=== PATIENT | female | born 1940 | race African-American/Black ===

== ENCOUNTER 2018-03-22 13:20 | Emergency (ER) | payer OTHER ==
[~2018-03-22] VITALS: Ht 167.6 cm; Wt 88.0 kg
[~2018-03-22 13:20] MED LIST: ASPI-986 PO; ATOR40TA70 MT; COR25 MT; DOCU-150 PO; HYDR-4135 PO; LEVO25TA7 PO; LISI40TA4 PO
[2018-03-22] MEDS ORDERED: SODIUM CHLORIDE 0.9% 1,000 ML IV ONE (14:07)
[2018-03-22] MEDS ORDERED: ONDANSETRON HCL 4MG/2ML INJ IV STA (14:07)
[2018-03-22 15:01] LABS: BASOPHILS % 1.1 % (0.0-2.0); EOSINOPHILS % 5.5 % (0.0-5.0); HEMOGLOBIN. 12.2 g/dL (12.0-16.0); LYMPHOCYTES % 30.7 % (20.0-50.0); MEAN CORPUSCULAR HEMOGLOBIN 26.6 pg (28.0-32.0); MEAN CORPUSCULAR VOLUME 80.9 fL (81.0-99.0); MEAN PLATELET VOLUME 8.1 fl (7.4-10.4); MONOCYTES % 10.9 % (2.0-8.0); NEUTROPHILS % 51.8 % (40.0-76.0); PLATELET 311 x1000/uL (130-400); RED BLOOD CELL COUNT 4.57 mill/uL (4.2-5.4); RED CELL DISTRIBUTION WIDTH 15.1 % (11.6-14.6)
[2018-03-22] MEDS ORDERED: HYDR-4134 PO (15:01)
[2018-03-22 15:08] LABS: CHLORIDE 108 mEq/L (98-107)
[2018-03-22] MEDS ORDERED: ASPIRIN 81MG TABLET PO ONE (16:30)
[2018-03-22] MEDS ORDERED: NA PHOS,M-B/NA PHOS,DI-BA ENEMA 118ML PR PRN (18:30)
[2018-03-22] MEDS ORDERED: MAGNESIUM/ALUMINUM HYDROXIDE/SIMETHICONE 30ML UDC PO PRN (18:30)
[2018-03-22] MEDS ORDERED: DEXT 5%/0.45% NACL 1000ML 1,000 ML IV SCH (18:30)
[2018-03-22] MEDS ORDERED: ONDANSETRON HCL 4MG/2ML INJ IV PRN (18:30)
[2018-03-22] MEDS ORDERED: DIPHENHYDRAMINE 50MG/ML VIAL IV PRN (18:30)
[2018-03-22] MEDS ORDERED: HYDRALAZINE 20MG/ML VIAL IV PRN (18:30)
[2018-03-22] MEDS ORDERED: IPRATROPIUM/ALBUTEROL 0.5-3(2.5)MG/3ML NEB INH PRN (18:30)
[2018-03-22] MEDS ORDERED: GUAIFENESIN 200MG/10ML SUGAR FREE UDC PO PRN (18:30)
[2018-03-22] MEDS ORDERED: DEXTROSE 50% WATER 50ML SYRINGE IV PRN (19:15)
[2018-03-22 19:21] LABS: CLARITY URINE CLEAR (CLEAR); COLOR URINE YELLOW (YELLOW); KETONES URINE NEGATIVE (NEGATIVE); LEUKOCYTE ESTERASE URINE 3+ (NEGATIVE); NITRITE URINE NEGATIVE (NEGATIVE); OCCULT BLOOD URINE NEGATIVE (NEGATIVE); PROTEIN URINE NEGATIVE (NEGATIVE); SPECIFIC GRAVITY URINE 1.008 (1.005-1.030); UROBILINOGEN URINE 0.2 E.U./dL (0.2-1.0)
[2018-03-22 19:28] LABS: INR 1.1; PROTHROMBIN TIME 10.8 sec (9.1-11.1)
[2018-03-22 19:40] LABS: *AMPHETAMINES SCREEN URINE NEGATIVE (NEGATIVE); *BARBITURATES SCREEN URINE NEGATIVE (NEGATIVE); *BENZODIAZEPINES SCREEN URINE NEGATIVE (NEGATIVE); *COCAINE SCREEN URINE NEGATIVE (NEGATIVE); CANNABINOID URINE SCREEN NEGATIVE (NEGATIVE); METHADONE URINE SCREEN NEGATIVE (NEGATIVE); OPIATES URINE SCREEN NEGATIVE (NEGATIVE); PHENCYCLIDINE URINE SCREEN NEGATIVE (NEGATIVE)
[2018-03-22 19:55] VITALS: BP 169/74
[2018-03-22] MEDS ORDERED: BLOOD SUGAR DIAGNOSTIC STRIP TEST SCH (21:00)
[2018-03-22] MEDS ORDERED: INSULIN LISPRO 100 UNITS/ML SUBCUT SCH (21:00)
[2018-03-22] MEDS ORDERED: HYDRALAZINE HCL 50MG TABLET PO SCH (22:00)
[2018-03-23] MEDS ORDERED: LEVOTHYROXINE SODIUM 25MCG TABLET PO SCH (07:50)
[2018-03-23] MEDS ORDERED: ATORVASTATIN CALCIUM 40MG TABLET PO SCH (09:00)
[2018-03-23] MEDS ORDERED: ASPIRIN 81MG TABLET PO SCH (09:00)
[2018-03-23] MEDS ORDERED: CARVEDILOL 25MG TABLET PO SCH (09:00)
== END 2018-03-22 20:13 | disposition home or self-care (01) ==
LOC: ER 14:44 → EDBEDREQTM 16:15 → EDBEDREQ 16:15 → ER 20:13 → ENRESERV 20:17 → CANRESERV 20:17 → CANBEDREQ 03-23 00:10
DX: E11.9 Type 2 diabetes mellitus without complications (principal); I10 Essential (primary) hypertension; Z86.73 Personal history of transient ischemic attack (TIA), and cerebral infarction without residual deficits; Z88.0 Allergy status to penicillin; Z79.899 Other long term (current) drug therapy; Z88.6 Allergy status to analgesic agent
CPT/HCPCS: 36415; 71045; 74018; 80053; 80305; 81003; 83690; 84484; 85025; 85610; 87086; 93005; 93970; 96361; 96374; 99285; J1200; J2405; J7030

== ENCOUNTER 2018-07-25 17:56 | Inpatient (IN) | payer BC, MEDICARE, OTHER ==
[~2018-07-25] VITALS: Ht 162.6 cm; Wt 94.3 kg
[~2018-07-25 17:56] MED LIST changes: -ATOR40TA70 MT; +ATOR40TA70 PO; -COR25 MT; +COR25 PO; +HYDR-4134 PO
[2018-07-25] MEDS ORDERED: ONDANSETRON HCL 4MG/2ML INJ IV STA (18:52)
[2018-07-25] MEDS ORDERED: SODIUM CHLORIDE 0.9% 1,000 ML IV ONE (18:52)
[2018-07-25] MEDS ORDERED: CLONIDINE 0.2MG TABLET PO ONE (19:00)
[2018-07-25 19:39] LABS: CHLORIDE 104 mEq/L (98-107)
[2018-07-25 19:40] LABS: BASOPHILS % 1.1 % (0.0-2.0); EOSINOPHILS % 0.8 % (0.0-5.0); HEMATOCRIT. 42.1 % (36.0-48.0); HEMOGLOBIN. 13.4 g/dL (12.0-16.0); LYMPHOCYTES % 27.1 % (20.0-50.0); MEAN CORPUSCULAR HEMOGLOBIN 26.3 pg (28.0-32.0); MEAN CORPUSCULAR VOLUME 82.4 fL (81.0-99.0); MEAN PLATELET VOLUME 8.4 fl (7.4-10.4); MONOCYTES % 9.8 % (2.0-8.0); NEUTROPHILS % 61.2 % (40.0-76.0); PLATELET 349 x1000/uL (130-400); RED BLOOD CELL COUNT 5.11 mill/uL (4.2-5.4); RED CELL DISTRIBUTION WIDTH 15.6 % (11.6-14.6)
[2018-07-25 19:47] LABS: D-DIMER 2.68 mg/L FEU (<0.50); PARTIAL THROMBOPLASTIN TIME 23.1 sec (23.4-31.0); PROTHROMBIN TIME 10.4 sec (9.1-11.1)
[2018-07-25] MEDS ORDERED: ASPIRIN 325MG EC TABLET PO ONE (20:00)
[2018-07-25] MEDS ORDERED: IOHEXOL-350 100 ML BOTTLE ONE (22:42)
[2018-07-25] MEDS ORDERED: SODIUM CHLORIDE 0.9% 1000ML BAG (SEPSIS BOLUS) IV ONE (23:00)
[2018-07-25] MEDS ORDERED: LEVOFLOXACIN 750MG PREMIX 150 ML IV ONE (23:00)
[2018-07-25 23:57] LABS: CLARITY URINE CLOUDY (CLEAR); COLOR URINE YELLOW (YELLOW); KETONES URINE NEGATIVE (NEGATIVE); LEUKOCYTE ESTERASE URINE 3+ (NEGATIVE); NITRITE URINE NEGATIVE (NEGATIVE); OCCULT BLOOD URINE NEGATIVE (NEGATIVE); PH URINE 7.5 (4.5-8.0); PROTEIN URINE NEGATIVE (NEGATIVE); SPECIFIC GRAVITY URINE 1.013 (1.005-1.030); UROBILINOGEN URINE 0.2 E.U./dL (0.2-1.0)
[2018-07-26] VITALS (7 sets, daily range): BP systolic 129–158; BP diastolic 55–81
[2018-07-26] MEDS ORDERED: TRAMADOL 50MG TABLET PO PRN (02:30)
[2018-07-26] MEDS ORDERED: LOSA1TAB34 PO (02:47)
[2018-07-26] MEDS ORDERED: HYDRALAZINE HCL 25MG TABLET PO SCH (06:00)
[2018-07-26] MEDS ORDERED: LEVOTHYROXINE SODIUM 25MCG TABLET PO SCH (07:40)
[2018-07-26] MEDS ORDERED: ASPIRIN 325MG TABLET PO SCH (09:00)
[2018-07-26] MEDS ORDERED: LEVOTHYROXINE SODIUM 25 MCG PO SCH (09:00)
[2018-07-26] MEDS ORDERED: LOSARTAN POTASSIUM 50 MG TABLET PO SCH (09:00)
[2018-07-26] MEDS ORDERED: DOCUSATE SODIUM 100MG CAPSULE PO SCH (09:00)
[2018-07-26] MEDS ORDERED: HYDRALAZINE HCL 75 MG PO SCH (09:00)
[2018-07-26] MEDS ORDERED: ENOXAPARIN 40MG/0.4ML SYR SUBCUT SCH (09:00)
[2018-07-26] MEDS ORDERED: HYDROCHLOROTHIAZIDE 12.5MG CAPSULE PO SCH (09:00)
[2018-07-26] MEDS ORDERED: CARVEDILOL 25MG TABLET PO SCH (09:00)
[2018-07-26] MEDS ORDERED: MEDICATION NOT ON FORMULARY EA (Aspirin 325 MG) PO SCH (09:00)
[2018-07-26] MEDS ORDERED: MEDICATION NOT ON FORMULARY EA (Losartan/Hydrochlorothiazide (Losartan-Hctz 50-12.5 Mg T PO SCH (09:00)
[2018-07-26] MEDS ORDERED: MEDICATION NOT ON FORMULARY EA (Docusate Sodium 100 MG) PO SCH (09:00)
[2018-07-26 10:59] LABS: BASOPHILS % 0.9 % (0.0-2.0); EOSINOPHILS % 1.5 % (0.0-5.0); HEMATOCRIT. 39.2 % (36.0-48.0); HEMOGLOBIN. 12.6 g/dL (12.0-16.0); LYMPHOCYTES % 21.5 % (20.0-50.0); MEAN CORPUSCULAR HEMOGLOBIN 26.3 pg (28.0-32.0); MEAN PLATELET VOLUME 8.2 fl (7.4-10.4); MONOCYTES % 7.2 % (2.0-8.0); NEUTROPHILS % 68.9 % (40.0-76.0); PLATELET 313 x1000/uL (130-400); RED BLOOD CELL COUNT 4.78 mill/uL (4.2-5.4)
[2018-07-26 11:10] LABS: CHLORIDE 105 mEq/L (98-107)
[2018-07-26 11:45] LABS: CREATINE KINASE 40 IU/L (26-192)
[2018-07-26 11:52] LABS: CREATINE KINASE MB FRACTION 1.4 ng/mL (0.5-3.6)
[2018-07-26] MEDS ORDERED: DEXTROSE 50% WATER 50ML SYRINGE IV PRN ×2 (13:00→15:45)
[2018-07-26] MEDS ORDERED: INSULIN LISPRO 100 UNITS/ML SUBCUT SCH ×2 (13:10→18:10)
[2018-07-26] MEDS ORDERED: HYDRALAZINE HCL 100MG TABLET PO SCH (14:00)
[2018-07-26] MEDS ORDERED: LEVOFLOXACIN 500MG TABLET PO SCH (16:30)
[2018-07-26] MEDS ORDERED: CARVEDILOL 12.5MG TABLET PO SCH (17:00)
[2018-07-26] MEDS ORDERED: BLOOD SUGAR DIAGNOSTIC STRIP TEST SCH ×2 (17:40)
[2018-07-26] MEDS ORDERED: ATORVASTATIN CALCIUM 40MG TABLET PO SCH (21:00)
== END 2018-07-26 21:25 | disposition home or self-care (01) | DRG 74 ==
LOC: ER 17:56 → 7WST 21:49 → EDBEDREQ 21:56 → EDBEDREQTM 21:56 → ENRESERV 23:35
PROVIDERS: ADMIT Internal Medicine; ATTEND Internal Medicine
DX: G90.8 Other disorders of autonomic nervous system (principal); N39.0 Urinary tract infection, site not specified; E03.9 Hypothyroidism, unspecified; E11.65 Type 2 diabetes mellitus with hyperglycemia; E78.00 Pure hypercholesterolemia, unspecified; E78.5 Hyperlipidemia, unspecified; I10 Essential (primary) hypertension; Z86.73 Personal history of transient ischemic attack (TIA), and cerebral infarction without residual deficits; Z88.0 Allergy status to penicillin; Z88.8 Allergy status to other drugs, medicaments and biological substances; Z79.82 Long term (current) use of aspirin; Z79.899 Other long term (current) drug therapy
CPT/HCPCS: 36415; 71045; 71275; 80048; 82550; 82553; 82962; 83036; 83605; 83880; 84484; 85379; 93005; 93880; 93970; 96365; 96375; 97162; 99285; A6261; J1650; J1956; J2405; J7030; Q9967

== ENCOUNTER 2018-10-09 21:31 | Inpatient (IN) | payer BC ==
[~2018-10-09] VITALS: Ht 162.6 cm; Wt 94.0 kg
[~2018-10-09 21:31] MED LIST changes: -HYDR-4134 PO; -LISI40TA4 PO; +LOSA1TAB34 PO
[2018-10-09] MEDS ORDERED: IOHEXOL-350 100 ML BOTTLE ONE (22:17)
[2018-10-09] MEDS ORDERED: CEFTRIAXONE 1 G PREMIX 50 ML IV ONE (23:15)
[2018-10-09] MEDS ORDERED: SODIUM CHLORIDE 0.9% 1000ML BAG (SEPSIS BOLUS) IV ONE (23:15)
[2018-10-09] MEDS ORDERED: ASPIRIN 81MG TABLET PO ONE (23:30)
[2018-10-09 23:35] LABS: CHLORIDE 102 mEq/L (98-107)
[2018-10-09 23:37] LABS: BASOPHILS % 1.2 % (0.0-2.0); EOSINOPHILS % 1.2 % (0.0-5.0); HEMATOCRIT. 38.5 % (36.0-48.0); HEMOGLOBIN. 12.6 g/dL (12.0-16.0); LYMPHOCYTES % 40.1 % (20.0-50.0); MEAN CORPUSCULAR HEMOGLOBIN 28.2 pg (28.0-32.0); MEAN CORPUSCULAR VOLUME 86.2 fL (81.0-99.0); MEAN PLATELET VOLUME 6.9 fl (7.4-10.4); MONOCYTES % 10.5 % (2.0-8.0); PLATELET 407 x1000/uL (130-400); RED BLOOD CELL COUNT 4.47 mill/uL (4.2-5.4); RED CELL DISTRIBUTION WIDTH 15.5 % (11.6-14.6)
[2018-10-09 23:40] LABS: ETHANOL BLOOD < 10 mg/dL
[2018-10-09 23:42] LABS: LDL CHOLESTEROL 48 mg/dL (5-100)
[2018-10-09] MEDS: HYDRALAZINE 20MG/ML VIAL IV ONE (23:48)
[2018-10-10] VITALS (10 sets, daily range): BP systolic 130–171; BP diastolic 74–135
[2018-10-10 00:13] LABS: CLARITY URINE CLEAR (CLEAR); COLOR URINE YELLOW (YELLOW); KETONES URINE NEGATIVE (NEGATIVE); LEUKOCYTE ESTERASE URINE 2+ (NEGATIVE); NITRITE URINE NEGATIVE (NEGATIVE); OCCULT BLOOD URINE NEGATIVE (NEGATIVE); PROTEIN URINE NEGATIVE (NEGATIVE); SPECIFIC GRAVITY URINE 1.015 (1.005-1.030); UROBILINOGEN URINE 0.2 E.U./dL (0.2-1.0)
[2018-10-10 00:23] LABS: *AMPHETAMINES SCREEN URINE NEGATIVE (NEGATIVE); *BARBITURATES SCREEN URINE NEGATIVE (NEGATIVE); *BENZODIAZEPINES SCREEN URINE NEGATIVE (NEGATIVE); *COCAINE SCREEN URINE NEGATIVE (NEGATIVE)
[2018-10-10 00:24] LABS: CANNABINOID URINE SCREEN PRESUMTIVE POSITIVE (NEGATIVE); METHADONE URINE SCREEN NEGATIVE (NEGATIVE); OPIATES URINE SCREEN NEGATIVE (NEGATIVE); PHENCYCLIDINE URINE SCREEN NEGATIVE (NEGATIVE)
[2018-10-10] MEDS: HYDRALAZINE 20MG/ML VIAL IV ONE (00:34)
[2018-10-10] MEDS ORDERED: METOPROLOL TARTRATE 5MG/5ML VIAL IV SCH (07:15)
[2018-10-10] MEDS: HYDRALAZINE 20MG/ML VIAL IV PRN (08:13)
[2018-10-10] MEDS ORDERED: ENOXAPARIN 40MG/0.4ML SYR SUBCUT SCH (09:00)
[2018-10-10] MEDS: DEXT 5%/0.45% NACL 1000ML 1,000 ML IV SCH (10:34)
[2018-10-10] MEDS: NITROGLYCERIN OINT 1GM/INCH UDPKT TD SCH ×4 (10:35→20:01)
[2018-10-10] MEDS: CLOPIDOGREL 75MG TABLET PO SCH (10:35)
[2018-10-10] MEDS: LEVOTHYROXINE SODIUM 25MCG TABLET PO SCH (10:35)
[2018-10-10] MEDS: ENOXAPARIN 30MG/0.3ML SYR SUBCUT SCH ×2 (10:36→20:06)
[2018-10-10] MEDS: LOSARTAN POTASSIUM 50 MG TABLET PO SCH (12:50)
[2018-10-10] MEDS: DOCUSATE SODIUM 100MG CAPSULE PO SCH (12:50)
[2018-10-10] MEDS: HYDROCHLOROTHIAZIDE 12.5MG CAPSULE PO SCH (12:50)
[2018-10-10] MEDS: LEVOFLOXACIN 500MG PREMIX 100 ML IV SCH (18:14)
[2018-10-10] MEDS: ATORVASTATIN CALCIUM 40MG TABLET PO SCH (20:01)
[2018-10-10] MEDS: CARVEDILOL 25MG TABLET PO SCH (20:02)
[2018-10-10 20:35] LABS: T4 FREE 1.19 ng/dL (0.76-1.46)
[2018-10-10 20:50] LABS: FOLIC ACID (FOLATE) SERUM 12.4 ng/mL (>5.38)
[2018-10-11] VITALS (21 sets, daily range): BP systolic 94–184; BP diastolic 56–101
[2018-10-11] MEDS: NITROGLYCERIN OINT 1GM/INCH UDPKT TD SCH ×7 (00:30→23:30)
[2018-10-11] MEDS: HYDRALAZINE 20MG/ML VIAL IV PRN ×3 (03:01→12:39)
[2018-10-11] MEDS: DEXT 5%/0.45% NACL 1000ML 1,000 ML IV SCH (04:00)
[2018-10-11] MEDS: ENOXAPARIN 30MG/0.3ML SYR SUBCUT SCH ×2 (08:39→23:29)
[2018-10-11] MEDS: LEVOTHYROXINE SODIUM 25MCG TABLET PO SCH (08:39)
[2018-10-11] MEDS: ASPIRIN 325MG EC TABLET PO SCH (08:39)
[2018-10-11] MEDS: CARVEDILOL 25MG TABLET PO SCH ×2 (08:40→23:29)
[2018-10-11] MEDS: DOCUSATE SODIUM 100MG CAPSULE PO SCH (08:41)
[2018-10-11] MEDS: LOSARTAN POTASSIUM 50 MG TABLET PO SCH (08:49)
[2018-10-11] MEDS: CLOPIDOGREL 75MG TABLET PO SCH (09:19)
[2018-10-11] MEDS: HYDROCHLOROTHIAZIDE 12.5MG CAPSULE PO SCH (09:19)
[2018-10-11] MEDS ORDERED: LABETALOL 5MG/ML SYR 20 MG/4 ML SYRINGE IV NR (10:00)
[2018-10-11 11:12] LABS: EOSINOPHILS % 2.2 % (0.0-5.0); HEMATOCRIT. 36.9 % (36.0-48.0); LYMPHOCYTES % 31.4 % (20.0-50.0); MEAN CORPUSCULAR HEMOGLOBIN 27.8 pg (28.0-32.0); MEAN CORPUSCULAR VOLUME 85.3 fL (81.0-99.0); MONOCYTES % 12.8 % (2.0-8.0); NEUTROPHILS % 51.6 % (40.0-76.0); PLATELET 438 x1000/uL (130-400); RED BLOOD CELL COUNT 4.32 mill/uL (4.2-5.4); RED CELL DISTRIBUTION WIDTH 15.3 % (11.6-14.6)
[2018-10-11 11:17] LABS: CHLORIDE 107 mEq/L (98-107)
[2018-10-11] MEDS ORDERED: LABETALOL 5MG/ML SYR 20 MG/4 ML SYRINGE IV PRN (15:45)
[2018-10-11] MEDS: LEVOFLOXACIN 500MG PREMIX 100 ML IV SCH (17:04)
[2018-10-11] MEDS ORDERED: LORAZEPAM 2MG/ML CPJ IV NR (22:15)
[2018-10-11] MEDS: ATORVASTATIN CALCIUM 40MG TABLET PO SCH (23:28)
[2018-10-11] MEDS: LEVETIRACETAM 500 MG in SODIUM CHLORIDE 0.9% 100 ML IV SCH (23:28)
[2018-10-11] MEDS ORDERED: LORAZEPAM 2MG/ML CPJ IV PRN (23:45)
[2018-10-12] VITALS (14 sets, daily range): BP systolic 96–132; BP diastolic 52–72
[2018-10-12] MEDS: DEXT 5%/0.45% NACL 1000ML 1,000 ML IV SCH ×2 (00:03→12:42)
[2018-10-12] MEDS: NITROGLYCERIN OINT 1GM/INCH UDPKT TD SCH ×5 (03:34→21:33)
[2018-10-12] MEDS: LEVOTHYROXINE SODIUM 25MCG TABLET PO SCH ×2 (06:26→09:05)
[2018-10-12 06:31] LABS: HEMATOCRIT. 35.6 % (36.0-48.0); HEMOGLOBIN. 11.2 g/dL (12.0-16.0); MEAN CORPUSCULAR HEMOGLOBIN 27.6 pg (28.0-32.0); MEAN CORPUSCULAR VOLUME 87.5 fL (81.0-99.0); MEAN PLATELET VOLUME 7.2 fl (7.4-10.4); PLATELET 335 x1000/uL (130-400); RED BLOOD CELL COUNT 4.07 mill/uL (4.2-5.4); RED CELL DISTRIBUTION WIDTH 15.3 % (11.6-14.6)
[2018-10-12 06:42] LABS: CHLORIDE 109 mEq/L (98-107)
[2018-10-12 06:53] LABS: PHOSPHORUS 3.8 mg/dL (2.5-4.9)
[2018-10-12] MEDS: ENOXAPARIN 30MG/0.3ML SYR SUBCUT SCH ×2 (09:02→21:33)
[2018-10-12] MEDS: LEVETIRACETAM 500 MG in SODIUM CHLORIDE 0.9% 100 ML IV SCH ×2 (09:03→21:44)
[2018-10-12] MEDS: CLOPIDOGREL 75MG TABLET PO SCH (09:04)
[2018-10-12] MEDS: DOCUSATE SODIUM 100MG CAPSULE PO SCH (09:04)
[2018-10-12] MEDS: LOSARTAN POTASSIUM 50 MG TABLET PO SCH (09:04)
[2018-10-12] MEDS: CARVEDILOL 25MG TABLET PO SCH ×2 (09:05→21:32)
[2018-10-12] MEDS: HYDROCHLOROTHIAZIDE 12.5MG CAPSULE PO SCH (09:05)
[2018-10-12] MEDS: ASPIRIN 325MG EC TABLET PO SCH (09:05)
[2018-10-12 14:04] LABS: PLATELET ESTIMATE NORMAL
[2018-10-12] MEDS: LEVOFLOXACIN 500MG PREMIX 100 ML IV SCH (17:58)
[2018-10-12] MEDS: ATORVASTATIN CALCIUM 40MG TABLET PO SCH (21:33)
[2018-10-13] VITALS (11 sets, daily range): BP systolic 98–131; BP diastolic 49–76
[2018-10-13] MEDS: NITROGLYCERIN OINT 1GM/INCH UDPKT TD SCH ×6 (00:41→21:17)
[2018-10-13] MEDS: DEXT 5%/0.45% NACL 1000ML 1,000 ML IV SCH ×2 (02:38→05:00)
[2018-10-13] MEDS: ENOXAPARIN 30MG/0.3ML SYR SUBCUT SCH ×2 (08:48→21:34)
[2018-10-13] MEDS: LOSARTAN POTASSIUM 50 MG TABLET PO SCH (08:49)
[2018-10-13] MEDS: DOCUSATE SODIUM 100MG CAPSULE PO SCH (08:49)
[2018-10-13] MEDS: ASPIRIN 325MG EC TABLET PO SCH (08:49)
[2018-10-13] MEDS: LEVETIRACETAM 500 MG in SODIUM CHLORIDE 0.9% 100 ML IV SCH ×2 (08:50→21:17)
[2018-10-13] MEDS: CLOPIDOGREL 75MG TABLET PO SCH (08:51)
[2018-10-13] MEDS: CARVEDILOL 25MG TABLET PO SCH ×2 (09:24→21:18)
[2018-10-13] MEDS: HYDROCHLOROTHIAZIDE 12.5MG CAPSULE PO SCH (09:25)
[2018-10-13] MEDS: LEVOFLOXACIN 500MG PREMIX 100 ML IV SCH (17:27)
[2018-10-13] MEDS: ATORVASTATIN CALCIUM 40MG TABLET PO SCH (21:18)
[2018-10-14] VITALS (12 sets, daily range): BP systolic 111–163; BP diastolic 52–83
[2018-10-14] MEDS: NITROGLYCERIN OINT 1GM/INCH UDPKT TD SCH ×7 (00:17→23:20)
[2018-10-14] MEDS: DEXT 5%/0.45% NACL 1000ML 1,000 ML IV SCH ×2 (00:22→19:43)
[2018-10-14] MEDS: LEVOTHYROXINE SODIUM 25MCG TABLET PO SCH (06:24)
[2018-10-14] MEDS: ENOXAPARIN 30MG/0.3ML SYR SUBCUT SCH ×2 (08:41→20:14)
[2018-10-14] MEDS: LOSARTAN POTASSIUM 50 MG TABLET PO SCH (08:42)
[2018-10-14] MEDS: DOCUSATE SODIUM 100MG CAPSULE PO SCH (08:43)
[2018-10-14] MEDS: ASPIRIN 325MG EC TABLET PO SCH (08:43)
[2018-10-14] MEDS: CARVEDILOL 25MG TABLET PO SCH ×2 (08:43→20:14)
[2018-10-14] MEDS: HYDROCHLOROTHIAZIDE 12.5MG CAPSULE PO SCH (10:05)
[2018-10-14] MEDS: LEVETIRACETAM 500 MG in SODIUM CHLORIDE 0.9% 100 ML IV SCH (10:06)
[2018-10-14] MEDS: CLOPIDOGREL 75MG TABLET PO SCH (10:06)
[2018-10-14] MEDS: LEVOFLOXACIN 500MG TABLET PO SCH (17:38)
[2018-10-14] MEDS: ATORVASTATIN CALCIUM 40MG TABLET PO SCH (20:14)
[2018-10-14] MEDS: LEVETIRACETAM 500MG TABLET PO SCH (20:14)
[2018-10-15] VITALS (10 sets, daily range): BP systolic 103–143; BP diastolic 47–90
[2018-10-15] MEDS: NITROGLYCERIN OINT 1GM/INCH UDPKT TD SCH ×6 (04:44→23:04)
[2018-10-15] MEDS: HYDROCHLOROTHIAZIDE 12.5MG CAPSULE PO SCH (08:41)
[2018-10-15] MEDS: CARVEDILOL 25MG TABLET PO SCH ×2 (08:42→20:59)
[2018-10-15] MEDS: LEVETIRACETAM 500MG TABLET PO SCH ×2 (08:42→20:59)
[2018-10-15] MEDS: DOCUSATE SODIUM 100MG CAPSULE PO SCH (08:42)
[2018-10-15] MEDS: ASPIRIN 325MG EC TABLET PO SCH (08:43)
[2018-10-15] MEDS: LOSARTAN POTASSIUM 50 MG TABLET PO SCH (08:43)
[2018-10-15] MEDS: CLOPIDOGREL 75MG TABLET PO SCH (08:43)
[2018-10-15] MEDS: ENOXAPARIN 30MG/0.3ML SYR SUBCUT SCH ×2 (08:43→21:00)
[2018-10-15] MEDS: LEVOTHYROXINE SODIUM 25MCG TABLET PO SCH (08:44)
[2018-10-15] MEDS: DEXT 5%/0.45% NACL 1000ML 1,000 ML IV SCH (12:29)
[2018-10-15] MEDS: LEVOFLOXACIN 500MG TABLET PO SCH (16:41)
[2018-10-15] MEDS: ATORVASTATIN CALCIUM 40MG TABLET PO SCH (20:59)
[2018-10-16] VITALS (12 sets, daily range): BP systolic 93–142; BP diastolic 53–110
[2018-10-16] MEDS: NITROGLYCERIN OINT 1GM/INCH UDPKT TD SCH ×5 (04:00→21:43)
[2018-10-16 06:55] LABS: HEMATOCRIT. 32.4 % (36.0-48.0); HEMOGLOBIN. 10.5 g/dL (12.0-16.0); MEAN CORPUSCULAR HEMOGLOBIN 28.1 pg (28.0-32.0); MEAN CORPUSCULAR VOLUME 86.7 fL (81.0-99.0); MEAN PLATELET VOLUME 7.2 fl (7.4-10.4); PLATELET 328 x1000/uL (130-400); RED BLOOD CELL COUNT 3.74 mill/uL (4.2-5.4); RED CELL DISTRIBUTION WIDTH 15.4 % (11.6-14.6)
[2018-10-16 07:02] LABS: CHLORIDE 109 mEq/L (98-107)
[2018-10-16] MEDS: ENOXAPARIN 30MG/0.3ML SYR SUBCUT SCH ×2 (08:09→21:41)
[2018-10-16] MEDS: LEVOTHYROXINE SODIUM 25MCG TABLET PO SCH (08:09)
[2018-10-16] MEDS: LEVETIRACETAM 500MG TABLET PO SCH ×2 (08:09→21:42)
[2018-10-16] MEDS: ASPIRIN 325MG EC TABLET PO SCH (08:09)
[2018-10-16] MEDS: DOCUSATE SODIUM 100MG CAPSULE PO SCH (08:09)
[2018-10-16] MEDS: LOSARTAN POTASSIUM 50 MG TABLET PO SCH (08:09)
[2018-10-16] MEDS: CARVEDILOL 25MG TABLET PO SCH ×2 (08:13→21:00)
[2018-10-16] MEDS: CLOPIDOGREL 75MG TABLET PO SCH (08:13)
[2018-10-16] MEDS: HYDROCHLOROTHIAZIDE 12.5MG CAPSULE PO SCH (08:13)
[2018-10-16 11:50] LABS: PLATELET ESTIMATE NORMAL
[2018-10-16] MEDS ORDERED: POTASSIUM CHLORIDE 20MEQ TABLET SR PO SCH (13:00)
[2018-10-16] MEDS: LEVOFLOXACIN 500MG TABLET PO SCH (17:19)
[2018-10-16] MEDS: ATORVASTATIN CALCIUM 40MG TABLET PO SCH (21:41)
[2018-10-17] VITALS (9 sets, daily range): BP systolic 126–179; BP diastolic 55–90
[2018-10-17] MEDS: NITROGLYCERIN OINT 1GM/INCH UDPKT TD SCH ×4 (02:00→12:03)
[2018-10-17] MEDS: LEVOTHYROXINE SODIUM 25MCG TABLET PO SCH (08:15)
[2018-10-17] MEDS: CLOPIDOGREL 75MG TABLET PO SCH (08:15)
[2018-10-17] MEDS: LOSARTAN POTASSIUM 50 MG TABLET PO SCH (08:16)
[2018-10-17] MEDS: CARVEDILOL 25MG TABLET PO SCH (08:16)
[2018-10-17] MEDS: ASPIRIN 325MG EC TABLET PO SCH (08:17)
[2018-10-17] MEDS: LEVETIRACETAM 500MG TABLET PO SCH (08:17)
[2018-10-17] MEDS: HYDROCHLOROTHIAZIDE 12.5MG CAPSULE PO SCH (08:17)
[2018-10-17] MEDS: DOCUSATE SODIUM 100MG CAPSULE PO SCH (08:18)
[2018-10-17] MEDS: ENOXAPARIN 30MG/0.3ML SYR SUBCUT SCH (08:18)
[2018-10-17 09:33] LABS: BASOPHILS % 2.2 % (0.0-2.0); EOSINOPHILS % 4.1 % (0.0-5.0); HEMATOCRIT. 36.2 % (36.0-48.0); HEMOGLOBIN. 11.4 g/dL (12.0-16.0); LYMPHOCYTES % 55.5 % (20.0-50.0); MEAN CORPUSCULAR HEMOGLOBIN 27.5 pg (28.0-32.0); MEAN CORPUSCULAR VOLUME 87.2 fL (81.0-99.0); MEAN PLATELET VOLUME 7.2 fl (7.4-10.4); MONOCYTES % 12.4 % (2.0-8.0); NEUTROPHILS % 25.8 % (40.0-76.0); PLATELET 345 x1000/uL (130-400); RED BLOOD CELL COUNT 4.15 mill/uL (4.2-5.4); RED CELL DISTRIBUTION WIDTH 15.2 % (11.6-14.6)
[2018-10-17 09:41] LABS: CHLORIDE 111 mEq/L (98-107)
== END 2018-10-17 18:39 | disposition home or self-care (01) | DRG 91 ==
LOC: ER 22:15 → 5EST 10-10 00:04 → EDBEDREQTM 10-10 00:15 → EDBEDREQ 10-10 00:15 → EDBEDREQDT 10-10 00:15 → ENRESERV 10-10 02:53
PROVIDERS: ADMIT Internal Medicine; ATTEND Internal Medicine
DX: G92 Toxic encephalopathy (principal); G82.50 Quadriplegia, unspecified; I16.1 Hypertensive emergency; N39.0 Urinary tract infection, site not specified; D64.9 Anemia, unspecified; I10 Essential (primary) hypertension; E78.00 Pure hypercholesterolemia, unspecified; F22 Delusional disorders; E11.40 Type 2 diabetes mellitus with diabetic neuropathy, unspecified; M48.02 Spinal stenosis, cervical region; E03.9 Hypothyroidism, unspecified; E78.5 Hyperlipidemia, unspecified; G40.909 Epilepsy, unspecified, not intractable, without status epilepticus; G89.29 Other chronic pain; M10.9 Gout, unspecified; M16.10 Unilateral primary osteoarthritis, unspecified hip; M17.10 Unilateral primary osteoarthritis, unspecified knee; M50.222 Other cervical disc displacement at C5-C6 level; M50.223 Other cervical disc displacement at C6-C7 level; R13.10 Dysphagia, unspecified; Z79.899 Other long term (current) drug therapy; I69.30 Unspecified sequelae of cerebral infarction; Z88.0 Allergy status to penicillin; Z88.5 Allergy status to narcotic agent; Z88.8 Allergy status to other drugs, medicaments and biological substances; Z79.82 Long term (current) use of aspirin
CPT/HCPCS: 36415; 70496; 70551; 71045; 71250; 72141; 80048; 80305; 80320; 82140; 82607; 82746; 82962; 83036; 83605; 83721; 83735; 83880; 84100; 84439; 84443; 84481; 84484; 85651; 92523; 92610; 93005; 93306; 93880; 93970; 97116; 97162; 97166; 97530; 97535; 99285; C1893; J0360; J0696; J1650; J1953; J1956; J2060; J3490; J7030; J7040; J7050; Q9967; A4315; G0480